=== PATIENT | male | born 1940 | race Caucasian/White ===

== ENCOUNTER 2016-09-02 10:38 | Emergency (ER) | payer OTHER, MEDICARE ==
[2016-09-02 11:07] VITALS: TEMP 98.1; BMI 32.8
--- NOTE | 2016-09-02 11:16 | PDOC ---
History of Present Illness - General History Source: Patient Exam Limitations: No Limitations - History of Present Illness Initial Comments: 09/02/16 11:53 <Brittnee Gautam - Last Filed: 09/02/16 12:22> - History of Present Illness Initial Comments: 09/02/16 12:27 The patient is a 76 year old male with a past medical hx of Hypertension, DVT, CHF, CVA, hyperlipidemia, hypothyroidism, anemia, paraplegia, atrial fibrillation, neurogenic bladder who presents to the ED for evaluation of a broken catheter today.The patient notes he had this catheter in for 2 months and reports it broke due to wear and tear. The patient denies nausea, vomiting, diarrhea The patient denies fever, chills The patient denies dysuria, frequency Allergies: Levoflaxacin Social: Former smoker Surgical: Spinal PCP: Dr. Liam Zuleta <Consuelo Dewitt - Last Filed: 09/02/16 12:51> - General Chief Complaint: Urinary Catheter Problem Stated Complaint: disloged perkins Time Seen by Provider: 09/02/16 10:52 Past History - Past Medical History Anemia: Yes Asthma: No Cancer: No Cardiac Disorders: Yes (history of atrial fibrillation, dvt) CVA: Yes COPD: No CHF: Yes DVT: Yes Dementia: No Diabetes: (right heel ulcer, HEALED PER [employer] 07/12) GI Disorders: No Disorders: Yes (recurrent uti, urosepsis,NEUROGENIC BLADDER) HTN: Yes Hypercholesterolemia: Yes Liver Disease: No Suicide Attempt (Hx): No Seizures: No Thyroid Disease: Yes (Hypothyroidism) Other medical history: indwelling catheter - Surgical History Abdominal Surgery: No Appendectomy: No Cardiac Surgery: No Cholecystectomy: No Lung Surgery: No Neurologic Surgery: Yes (SPINAL SX) Orthopedic Surgery: No - Immunization History Immunization Up to Date: No - Psycho/Social/Smoking Cessation Hx Anxiety: No Suicidal Ideation: No Smoking Status: Yes Smoking History: Former smoker Years of Tobacco Use: 10 Have you smoked in the past 12 months: No Number of Cigarettes Smoked Daily: 0 Information on smoking cessation initiated: No Hx Alcohol Use: No Drug/Substance Use Hx: No Substance Use Type: None Hx Substance Use Treatment: No <Brittnee Gautam - Last Filed: 09/02/16 12:22> <Neroda,Consuelo - Last Filed: 09/02/16 12:51> - Past Medical History Allergies/Adverse Reactions: Allergies Allergy/AdvReac Type Severity Reaction Status Date / Time levofloxacin [From Levaquin] Allergy Unknown Verified 09/29/15 11:14 Home Medications: Ambulatory Orders Acetic Acid 0.25% Irrigation [Acetic Acid 0.25RIGATION] 100 ml IR Q12HR Calcium Carbonate/Vitamin D3 [Oyster Shell 500-Vit D3 200 Tb] 1 each PO DAILY Ferrous Sulfate [Feosol] 325 mg PO TID 07/20/14 Sennosides [Senna] 8.6 mg PO HS 07/20/14 Baclofen [Lioresal -] 10 mg PO TID #30 tablet 07/23/14 Cyanocobalamin [Vitamin B12 -] 1,000 mcg PO DAILY #30 tablet 07/23/14 Levothyroxine [Synthroid -] 150 mcg PO DAILY@0700 #30 tablet 07/23/14 Polyethylene Glycol 3350 [Miralax 119 gm Btl -] 17 gm PO BID 09/12/14 Ergocalciferol (Vitamin D2) [Drisdol] 50,000 units PO SA 02/12/15 Miconazole Nitrate [Macarena Antifungal] 1 inch TP BID PRN 02/12/15 Mineral Oil/Hydrophil Petrolat [Aquaphor Healing Ointment] 50 gm TP BID Tetrahydrozoline HCl [Visine] 2 drop OD QID 02/12/15 Vit A/Vitamin D3/E/Aloe V/Znox [Periguard Ointment] 100 gm TP BID 02/12/15 Warfarin Na [Coumadin -] 5 mg PO SUMOWETHSA 02/12/15 Acetaminophen [Pain Relief] 650 mg PO Q6H PRN 09/30/15 Folic Acid 1 mg PO DAILY 09/30/15 Loperamide HCl [Imodium A-D] 2 mg PO ASDIR 09/30/15 Multivitamins [Multivit ([facility] Formul[facility])] 1 tab PO DAILY 09/30/15 Sodium Bicarbonate 650 tab PO TIDCM 09/30/15 Folic Acid 1 mg PO DAILY 02/27/16 Imodium A-D PRN 02/27/16 Tramadol HCl PRN 02/27/16 Review of Systems - Review of Systems Able to Perform ROS?: Yes Comments:: 09/02/16 12:27 GENERAL/CONSTITUTIONAL: No: fever, chills, weakness, loss of appetite. HEAD, EYES, EARS, NOSE AND THROAT: No: change in vision, ear pain, discharge, sore throat, throat swelling. CARDIOVASCULAR: No: chest pain, lightheadedness, palpitations, syncope RESPIRATORY: No: cough, shortness of breath, wheezing, hemoptysis, stridor. GASTROINTESTINAL: No: nausea, vomiting, abdominal cramping, diarrhea, rectal bleeding, constipation. GENITOURINARY: +Broken catheter. No: dysuria, hematuria, frequency, urgency, flank pain. MUSCULOSKELETAL: No: back pain, neck pain, joint pain, muscle swelling or pain SKIN: No: lesions, pallor, rash or easy bruising. NEUROLOGIC: No: headache, vertigo, paresthesias, weakness ENDOCRINE: No: unexplained weight gain or loss HEMATOLOGIC/LYMPHATIC: No: anemia, easy bleeding, swelling nodes <Consuelo Dewitt - Last Filed: 09/02/16 12:51> *Physical Exam - Vital Signs Last Vital Signs Temp Pulse Resp BP Pulse Ox 98.1 F 69 16 164/94 99 09/02/16 11:00 09/02/16 11:00 09/02/16 11:00 09/02/16 11:00 09/02/16 11:00 <Brittnee Gautam - Last Filed: 09/02/16 12:22> - Vital Signs Last Vital Signs Temp Pulse Resp BP Pulse Ox 98.1 F 69 16 164/94 99 09/02/16 11:00 09/02/16 11:00 09/02/16 11:00 09/02/16 11:00 09/02/16 11:00 - Physical Exam Comments: 09/02/16 12:28 GENERAL: The patient is in no acute distress. HEAD: Normal with no signs of trauma. EYES: PERRLA, EOMI, sclera anicteric, conjunctiva clear. ENT: Ears normal, nares patent, oropharynx clear without exudates. Moist mucous membranes. NECK: Normal range of motion, supple without lymphadenopathy, JVD, or masses. LUNGS: Breath sounds equal, clear to auscultation bilaterally. No wheezes, and no crackles. HEART:Regular rate and rhythm, normal S1 and S2 without murmur, rub or gallop. ABDOMEN: Soft, nontender, normoactive bowel sounds. No guarding, no rebound. GENITOURINARY: +Broken catheter in penis, abnormal penile anatomy, no suprapubic distention or tenderness, bedside ultrasound demonstrates no bladder enlargement. EXTREMITIES: +Bilateral lower extremity contractures. Normal range of motion, no edema. No clubbing or cyanosis. No erythema, or tenderness. NEUROLOGICAL: Cranial nerves II through XII grossly intact. Normal speech. No focal neurological deficits. MUSCULOSKELETAL: Back nontender to palpation, no CVA tenderness SKIN: Warm, Dry, normal turgor, no rashes or lesions noted. <Consuelo Dewitt - Last Filed: 09/02/16 12:51> Medical Decision Making - Medical Decision Making 09/02/16 11:15 A portion of this note was documented by scribe services under my direction. I have reviewed the details of the note, within reason, and agree with the documentation with the following case summary and management plan written by me. Nursing documentation reviewed and incorporated into medical decision making 09/02/16 11:49 This is a 76-year-old male with a history of paraplegia who presents to the emergency department due to issues with his Perkins catheter. The patient has a history of atrial fibrillation, paraplegia, neurogenic bladder , renal insufficiency, hypothyroidism. Patient states this recent catheter has been present for the past 2 or 3 months. He has been unable to follow up with his urologist for reevaluation. Apparently last night his catheter broke. Patient called an ambulance and presents emergency department for evaluation 09/02/16 11:52 09/02/16 11:53 On examination, catheter is broken approximately 3 inches distal to the tip of the penis. Patient's penile anatomy is abnormal. Call placed to Dr Zuleta He will see this patient in the ER Clinical Impression: Perkins cathether dysfunction Cathether replaced by Dr Zuleta Will discharge to home Follow up in the office per Dr Zuleta's recommendation 09/02/16 12:17 <Brittnee Gautam - Last Filed: 09/02/16 12:22> - Medical Decision Making 09/02/16 12:[address] Lan Zuleta at 1215 and patients case was discussed. <Consuelo Dewitt - Last Filed: 09/02/16 12:51> *DC/Admit/Observation/Transfer - Discharge Dispostion Admit: No <Brittnee Gautam - Last Filed: 09/02/16 12:22> - Attestations Scribe Attestion: 09/02/16 12:28 Documentation prepared by Consuelo Dewitt, acting as manager medical for Brittnee Gautam MD/DO. <Consuelo Dewitt - Last Filed: 09/02/16 12:51> Diagnosis at time of Disposition: Dislodged Perkins catheter Qualifiers: Encounter type: initial encounter Qualified Code(s): T83.028A - Displacement of other indwelling urethral catheter, initial encounter - Discharge Dispostion Disposition: HOME Condition at time of disposition: Improved - Referrals Referrals: Liam Zuleta [Primary Care Provider] - - Patient Instructions Printed Discharge Instructions: How to Care for Your Perkins Catheter -- Male Additional Instructions: Alejandro I am so sorry that your cathether broke Dr. Zuleta was able to replace it Thank you for coming in to the ER today Please follow up with Dr Zuleta in 8 weeks Return to the ER for any other concerns or complaints
[2016-09-02 14:23] VITALS: BP 158/80; PULSE 61
== END 2016-09-02 14:13 | disposition home or self-care (01) ==
LOC: JER 10:38
PROC: 0T2BX0Z Change Drainage Device in Bladder, External Approach (ICD-10-PCS; principal; 2016-09-02)
DX: T83.021A Displacement of indwelling urethral catheter, initial encounter (principal); Y84.6 Urinary catheterization as the cause of abnormal reaction of the patient, or of later complication, without mention of misadventure at the time of the procedure; D64.9 Anemia, unspecified; I48.91 Unspecified atrial fibrillation; Z79.01 Long term (current) use of anticoagulants; N31.8 Other neuromuscular dysfunction of bladder; I10 Essential (primary) hypertension; E78.00 Pure hypercholesterolemia, unspecified; Z86.73 Personal history of transient ischemic attack (TIA), and cerebral infarction without residual deficits; Z86.718 Personal history of other venous thrombosis and embolism
CPT/HCPCS: 99282-25